=== PATIENT | female | born 1960 | race Asian ===

== ENCOUNTER 2017-05-19 19:40 | Emergency (ER) | payer BC ==
[~2017-05-19] VITALS: Ht 165.1 cm; Wt 76.0 kg
[~2017-05-19 19:40] MED LIST: ASPI-825 PO; FENO48TA15 PO; LABE100T PO; LOSA100T8 PO; NIFE30TA5 PO; PANT40TA25 PO
[2017-05-19] MEDS ORDERED: AMLO-511 PO (19:48)
[2017-05-19] MEDS ORDERED: HYDR25TA PO (19:48)
[2017-05-19 21:12] VITALS: BP 118/80
== END 2017-05-19 21:49 | disposition home or self-care (01) ==
LOC: EMS 19:41
DX: I10 Essential (primary) hypertension (principal); M54.2 Cervicalgia; K21.9 Gastro-esophageal reflux disease without esophagitis; Z79.82 Long term (current) use of aspirin
CPT/HCPCS: 93005; 99283